=== PATIENT | male | born 1985 | race African-American/Black ===

== ENCOUNTER 2016-10-29 02:23 | Emergency (ER) | payer OTHER ==
[2016-10-29 02:30] VITALS: TEMP 98.4
[2016-10-29] MEDS ORDERED: IBUPROFEN 600 MG TAB PO ONE (03:08)
[2016-10-29] MEDS ORDERED: LIDOCAINE 2% VISCOUS 15 ML UDCUP PO ONE (03:09)
--- NOTE | 2016-10-29 03:29 | EDPHY ---
H & P Stated Complaint: ST, swollen tonsils, seen at earlier today, meds Rx'd not relieving sx Time Seen by Provider: 10/29/16 02:44 HPI/ROS: HPI The patient presents with pain of his hard palate, throat for, for last 4 days. It began 4 days ago after eating a sandwich. He has had a sharp pain on the roof of his mouth. He tried Magic mouthwash which initially improved his symptoms, however they have become progressively worse. He has been seen by the dentist who did not identify any 0 down to genetic cause of his symptoms. He went to an urgent care this morning and was prescribed pain medication and antibiotics which she has been taking. His with he does have a sore throat without any difficulty swallowing or breathing. He does not have any wheezing, fever, nausea or vomiting. He has no rash. He has not noticed any lesions within his mouth. He has no prior history of similar. he has no sick contacts.. REVIEW OF SYSTEMS Constitutional: No fever, no chills. Eyes: No discharge. ENT: Positive for sore throat. Cardiovascular: No chest pain, no palpitations. Respiratory: No cough, no shortness of breath. Gastrointestinal: No abdominal pain, no vomiting. Genitourinary: No hematuria. Musculoskeletal: No back pain. Skin: No rashes. Neurological: No headache. PMHx: Healthy Soc Hx: No sick contacts PHYSICAL General Appearance: Alert, no distress Eyes: Pupils equal and round no pallor or injection ENT, Mouth: Mucous membranes moist, proximal palate is slightly tender to palpation with no lesions present, no edema, posterior pharynx is slightly erythematous, nonedematous Respiratory: There are no retractions, lungs are clear to auscultation Cardiovascular: Regular rate and rhythm Gastrointestinal: Abdomen is soft and non-tender, no masses, bowel sounds normal Neurological: A&O, moves all extremities Skin: Warm and dry, no rashes Musculoskeletal: Neck is supple non tender Extremities: symmetrical, full range of motion Psychiatric: Patient is oriented X 3, there is no agitation Source: Patient Exam Limitations: No limitations - Personal History Current Tetanus/Diphtheria Vaccine: No - Medical/Surgical History Hx Asthma: No Hx Chronic Respiratory Disease: No Hx Diabetes: No Hx Cardiac Disease: No Hx Renal Disease: No Hx Cirrhosis: No Hx Alcoholism: No Hx HIV/AIDS: No Hx Splenectomy or Spleen Trauma: No Other PMH: PMHx: DENIES. PSHx: denies - Social History Smoking Status: Never smoked Constitutional: Initial Vital Signs Temperature (C) 36.9 C 10/29/16 02:26 Heart Rate 83 10/29/16 02:26 Respiratory Rate 14 10/29/16 02:26 Blood Pressure 135/80 H 10/29/16 02:26 O2 Sat (%) 100 10/29/16 02:26 O2 Delivery Mode Room Air Allergies/Adverse Reactions: Sulfa (Sulfonamide Antibiotics) Allergy (Verified 03/06/15 11:39) Home Medications: Medication Instructions Recorded Benzocaine/Menth/Cetylpyrd Cl 30 ml MM Q2 PRN #1 solution 10/29/16 [Actisep Solution] Hydrocodone/APAP 5/325 10/29/16 Medical Decision Making Differential Diagnosis: This is a 31-year-old man with 4 days of progressive hard palate pain, now with sore throat. He has a relatively unremarkable exam. Differential diagnosis would include shingles, however patient does not have any rash after 4 days of symptoms. Strep pharyngitis or mononucleosis are also considerations. Herpes simplex is a consideration, however again no rash. Burning mouth syndrome is a possibility, however should be a diagnosis of exclusion. In the emergency department, the patient was given viscous lidocaine with improvement in his symptoms. Rapid strep and Monospot were both negative. The cause of his symptoms is quite unclear at this point. I plan to refer him to [facility] for further evaluation given that he has already had a normal dental evaluation. - Data Points Laboratory Results: 10/29/16 10/29/16 10/29/16 Unknown 03:25 03:25 Monoscreen NEGATIVE (NEGATIVE) Group A Strep Screen NEGATIVE (NEGATIVE) Group A Strep DNA Pending Medications Given: Discontinued Medications Ibuprofen (Motrin) 600 mg PO EDNOW ONE Stop: 10/29/16 03:09 Last Admin: 10/29/16 03:26 Dose: Not Given Lidocaine (Lidocaine 2% Viscous) 5 ml PO EDNOW ONE Stop: 10/29/16 03:10 Last Admin: 10/29/16 03:14 Dose: 15 ml Departure - Departure Disposition: Home, Routine, Self-Care Clinical Impression: Sore throat, Mouth pain Condition: Good Instructions: Pharyngitis (ED) Additional Instructions: The cause of your pain is not entirely clear. You can try to do saltwater gargles to see if this helps her symptoms. Because of this I would like you to follow up with the Ear Nose and Throat doctor. I have listed his information below. Referrals: Yvonne Matthews MD [Medical Doctor] - As per Instructions Prescriptions: Benzocaine/Menth/Cetylpyrd Cl [Actisep Solution] 30 ml MM Q2 PRN #1 solution PRN Reason: Pain, Breakthrough
[2016-10-29] MEDS ORDERED: DEXAMETHASONE 10 MG/ML VIAL PO ONE (03:45)
[2016-10-29] MEDS ORDERED: KETOROLAC 30 MG/1 ML SDV IM ONE (03:45)
[2016-10-29 04:19] VITALS: BP 139/85; PULSE 80; RESP 16; O2SAT 98
== END 2016-10-29 04:19 | disposition home or self-care (01) ==
DX: J02.9 Acute pharyngitis, unspecified (principal); K13.79 Other lesions of oral mucosa
CPT/HCPCS: J1100; J1885